=== PATIENT | male | born 1970 | race Caucasian/White ===

== ENCOUNTER → 2016-08-25 | Outpatient (CLI) | payer MEDICARE, MEDICAID ==
[2016-08-25 07:58] LABS: BASOPHIL # 0.1 K/uL (0.0-0.2); BASOPHIL % 0.8 %; EOSINOPHIL # 0.1 K/uL (0.0-0.5); EOSINOPHIL % 1.1 %; HEMATOCRIT 35.4 % (37.0-53.0); HEMOGLOBIN 11.6 g/dL (12.0-17.0); IMMATURE GRANULOCYTE % 0.2 %; LYMPHOCYTE % 32.1 %; MCH 29.5 pg (27.0-34.0); MCHC 32.8 gm/dL (32.0-36.5); MCV 90.1 fl (83.0-98.0); MONOCYTE # 0.7 K/uL (0.0-1.0); MONOCYTE % 11.3 %; MPV 9.3 fl (9.4-12.4); NEUTROPHIL # (ANC) 3.4 K/uL (1.4-9.0); NEUTROPHIL % 54.5 %; NRBC % 0 /100WBC (0-0.00); RBC 3.93 M/uL (4.00-6.00); RDW-CV 12.8 % (11.9-14.6); WBC 6.2 K/uL (4.0-11.0)
[2016-08-25 08:01] LABS: PLATELET COUNT 403 K/uL (150-450)
[2016-08-25 08:17] LABS: ALBUMIN 2.9 gm/dL (3.5-5.0); ALK PHOS 65 IU/L (33-138); ALT 10 IU/L (12-78); ANION GAP 11.1 (10.0-19.0); AST 10 IU/L (10-40); BLOOD UREA NITROGEN 24 mg/dL (6-24); CHLORIDE 104 mMol/L (96-110); CO2 31 mMol/L (22-32); CREATININE 1.1 mg/dL (0.6-1.3); ESTIMATED GFR (MDRD EQUATION) > 60; POTASSIUM 5.1 mMol/L (3.7-5.1); SODIUM 141 mMol/L (135-145); TOTAL BILIRUBIN 0.2 mg/dL (0.0-1.5); TOTAL PROTEIN 7.6 g/dL (6.0-8.4)
== END | disposition disaster alternative care site (69) ==
LOC: LBETH 08-24 08:23
PROVIDERS: Psychiatry & Neurology Child & Adolescent Psychiatry
DX: E03.9 Hypothyroidism, unspecified (principal); F30.10 Manic episode without psychotic symptoms, unspecified; F84.0 Autistic disorder